=== PATIENT | male | born 1995 | race Hispanic/Latino ===

== ENCOUNTER 2020-01-16 14:24 | Emergency (ER) | payer SELFPAY ==
[2020-01-16 14:58] VITALS: BP 119/53
== END 2020-01-16 16:26 | disposition left against medical advice (07) ==
LOC: ED 14:24
DX: Z20.2 Contact with and (suspected) exposure to infections with a predominantly sexual mode of transmission (principal); Z53.21 Procedure and treatment not carried out due to patient leaving prior to being seen by health care provider